=== PATIENT | female | born 1945 | race Caucasian/White ===

== ENCOUNTER 2021-01-03 07:22 | Day surgery (SDC) | payer MEDICARE, OTHER ==
[~2021-01-03 07:22] MED LIST: Lactated Ringers 1,000 ML IV SCH; Propofol 200 MG/20 ML SDV ONE; fentaNYL 100 MCG/2 ML SDV ONE
--- NOTE | 2021-01-03 08:04 | PCM.PREANE ---
Preanesthetic Assessment - Anesthesia/Transfusion/Family Hx Anesthesia History: Prior Anesthesia Without Reaction Family History of Anesthesia Reaction: No Transfusion History: Prior Transfusion Without Reaction - Review of Systems General: No Symptoms Pulmonary: No Symptoms Cardiovascular: No Symptoms Gastrointestinal: No Symptoms Neurological: No Symptoms Other: Reports: None - Physical Assessment NPO Status Date: 01/03/21 NPO Status Time: 00:01 Height: 5 ft 5 in Weight: 172 lb ASA Class: 2 Mental Status: Alert & Oriented x3 Airway Class: Mallampati = 2 Dentition: Reports: Normal Dentition ROM/Head Extension: Limited/Partial Lungs: Clear to Auscultation, Normal Respiratory Effort Cardiovascular: Regular Rate, Regular Rhythm - Allergies Allergies/Adverse Reactions: Allergies Allergy/AdvReac Type Severity Reaction Status Date / Time Sulfa (Sulfonamide Allergy Rash Verified 12/31/20 10:20 Antibiotics) - Anesthesia Plan Pre-Op Medication Ordered: None - Acknowledgements Anesthesia Type Planned: General Anesthesia Pt an Appropriate Candidate for the Planned Anesthesia: Yes Alternatives and Risks of Anesthesia Discussed w Pt/Guardian: Yes Pt/Guardian Understands and Agrees with Anesthesia Plan: Yes Additional Comments: npo after mn htn no cv problems tob none etoh rare bmi 29 PreAnesthesia Questionnaire HEENT History: Reports: Allergic Rhinitis, Other (See Below) Other HEENT History: wears glasses Cardiovascular History: Reports: Hypertension Respiratory History: Reports: None Gastrointestinal History: Reports: Cholelithiasis, GERD Genitourinary History: Reports: UTI, Recurrent 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 Musculoskeletal History: Reports: Fracture Neurological History: Reports: Headaches, Chronic Psychiatric History: Reports: Other (See Below) Other Psychiatric History: Claustrophobic Endocrine/Metabolic History: Reports: Hypothyroidism Hematologic History: Reports: Blood Transfusion(s) Immunologic History: Reports: None Oncologic (Cancer) History: Reports: None Dermatologic History: Reports: Other (See Below) Other Dermatologic History: has had alot of "rashes" lately - Past Surgical History Head Surgeries/Procedures: Reports: None HEENT Surgical History: Reports: LASIK Cardiovascular Surgical History: Reports: None GI Surgical History: Reports: Appendectomy Female Surgical History: Reports: Breast Biopsy Endocrine Surgical History: Reports: None Neurological Surgical History: Reports: None Musculoskeletal Surgical History: Reports: Other (See Below) Other Musculoskeletal Surgeries/Procedures:: closed reduction of fx ankle Oncologic Surgical History: Reports: None Dermatological Surgical History: Reports: None - SUBSTANCE USE Tobacco Use Status *Q: Never Tobacco User Recreational Drug Use History: No - HOME MEDS Home Medications: Home Meds Potassium Chloride [Klor-Con M20] 20 meq PO DAILY 12/31/20 [History] Thyroid [[place] Thyroid] 30 mg PO DAILY 12/31/20 [History] hydroCHLOROthiazide [Hydrochlorothiazide] 12.5 mg PO DAILY 12/31/20 [History] - CURRENT (IN HOUSE) MEDS Current Meds: Current Medications Lactated Ringer's (Ringers, Lactated) 1,000 mls @ 125 mls/hr IV ASDIRECTED RYAN Discontinued Medications Fentanyl (Fentanyl 100 Mcg/2 Ml Sdv) Confirm Administered Dose 100 mcg .ROUTE .STK-MED ONE Stop: 01/03/21 06:53 Lidocaine HCl (Lidocaine 1% 5 Ml Sdv) Confirm Administered Dose 5 ml .ROUTE .STK-MED ONE Stop: 01/03/21 06:53 Propofol (Propofol 200 Mg/20 Ml Sdv) Confirm Administered Dose 200 mg .ROUTE .STK-MED ONE Stop: 01/03/21 06:53 Propofol (Propofol 200 Mg/20 Ml Sdv) Confirm Administered Dose 200 mg .ROUTE .STK-MED ONE Stop: 01/03/21 07:06
[2021-01-03] MEDS ORDERED: Lactated Ringers 1,000 ML IV SCH (09:30)
--- NOTE | 2021-01-03 09:35 | PCM.OPNOTE ---
- General Post-Op/Procedure Note Date of Surgery/Procedure: 01/03/21 Operative Procedure(s): Esophagogastroduodenoscopy with gastric biopsy Pre Op Diagnosis: abdominal pain withh belching and heartburn Post-Op Diagnosis: Chronic gastritis. Hiatal hernia. Anesthesia Technique: MAC (ASA III) Primary Surgeon: Lyle Loco Freelance Copywriter: Rafaela Sanabria Condition: Good Free Text/Narrative:: DICTATION [id number] CPT CODE [id number]
--- NOTE | 2021-01-03 09:42 | PCM.POSTAN ---
POST ANESTHESIA ASSESSMENT - MENTAL STATUS Mental Status: Alert (no anesthetic problems), Oriented - VITAL SIGNS Vital Signs: Last Vital Signs Temp 97.2 F 01/03/21 07:45 Pulse 77 01/03/21 09:36 Resp 12 01/03/21 09:36 BP 119/71 01/03/21 09:36 Pulse Ox 94 L 01/03/21 09:36 - RESPIRATORY Respiratory Status: Respiratory Rate WNL, Airway Patent, O2 Saturation Stable - CARDIOVASCULAR CV Status: Pulse Rate WNL, Blood Pressure Stable - GASTROINTESTINAL GI Status: No Symptoms - POST OP HYDRATION Hydration Status: Adequate & Stable
--- NOTE | 2021-01-03 10:11 | PCM48HPAN ---
Post Anesthesia Note - EVALUATION WITHIN 48HRS OF ANESTHETIC Vital Signs in Normal Range: Yes Patient Participated in Evaluation: Yes Respiratory Function Stable: Yes Airway Patent: Yes Cardiovascular Function Stable: Yes Hydration Status Stable: Yes Pain Control Satisfactory: Yes Nausea and Vomiting Control Satisfactory: Yes Mental Status Recovered: Yes Vital Signs: Last Vital Signs Temp 97.2 F 01/03/21 07:45 Pulse 77 01/03/21 09:36 Resp 12 01/03/21 09:36 BP 119/71 01/03/21 09:36 Pulse Ox 94 L 01/03/21 09:36
--- NOTE | 2021-01-03 14:52 | OR ---
SURGEON: Lyle Loco M.D. DATE OF PROCEDURE: 01/03/2021 OPERATION PERFORMED: Esophagogastroduodenoscopy with gastric biopsy. PRIMARY SURGEON: Lyle Loco M.D. TRACK AND FIELD COACH: post production assistant: RYAN Willis student. ANESTHESIA: MAC. ASA CLASSIFICATION: III. PREOPERATIVE DIAGNOSIS: Abdominal pain with frequent belching and heartburn. POSTOPERATIVE DIAGNOSES: 1. Mild chronic gastritis. 2. Hiatal hernia. DESCRIPTION OF PROCEDURE: The patient was taken to the endoscopy room and positioned on the endoscopy table in the supine position. Time-out was called for appropriate identification of the patient and procedure. Monitored anesthesia care was provided. Bite block was placed between the patient's teeth. Gastroscope was inserted through the bite block into the oropharynx and advanced without difficulty through the esophagus and stomach into the duodenum. Examination was now carried out in a retrograde fashion. The duodenum showed no acute inflammatory changes or ulcerations. The stomach did show mild gastritis. Antral biopsies were obtained to look for the presence of Helicobacter pylori. The gastroscope was then retroflexed to visualize the proximal stomach. No tumors or polyps were seen. The gastroscope was then straightened and slowly withdrawn. The patient did have a hiatal hernia that was best visualized from above. The portion of the stomach above the diaphragm did not show any vascular compromise nor any inflammatory changes. The GE junction was well-defined and showed no acute inflammatory changes. The esophagus demonstrated good contractility. No mid or proximal lesions were identified. The vocal cords were visualized as the scope was withdrawn. No vocal cord lesions were identified. The gastroscope was then removed with the patient having tolerated the procedure well. She was taken to recovery room in stable condition. KWADWO / EN /[id number] DEANGELO
== END 2021-01-03 10:20 | disposition home or self-care (01) ==
LOC: MW.SDS 07:22
PROVIDERS: ATTEND Surgery
DX: R10.13 Epigastric pain (principal); K31.89 Other diseases of stomach and duodenum; K44.9 Diaphragmatic hernia without obstruction or gangrene; K80.20 Calculus of gallbladder without cholecystitis without obstruction; Z88.2 Allergy status to sulfonamides; Z86.79 Personal history of other diseases of the circulatory system; Z86.39 Personal history of other endocrine, nutritional and metabolic disease
CPT/HCPCS: 43239; 88305; 88312; J2704; J3010; J7120; 00731